=== PATIENT | male | born 1940 | race Caucasian/White ===

== ENCOUNTER 2019-10-23 10:31 | Emergency (ER) | payer MEDICARE, OTHER ==
--- NOTE | 2019-10-23 11:34 | XRAY Report ---
PROCEDURE: Knee 3 View LT INDICATIONS: pain/swelling TECHNIQUE: 3 views of the left knee were acquired. COMPARISON: None. FINDINGS: Bones: No fractures or dislocations. Visualized osseous structures appear osteopenic. Soft tissues: There is a small joint effusion. There is chondrocalcinosis demonstrated. IMPRESSION: 1. No fracture or dislocation. 2. Chondrocalcinosis demonstrated. 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 3. Small joint effusion. Reviewed by: Wade Whitaker MD on 10/23/2019 11:32 AM PDT Approved by: Wade Whitaker MD on 10/23/2019 11:32 AM PDT Station ID: [id number]
--- NOTE | 2019-10-23 13:48 | ED Physician Documentation ---
PD HPI LOWER EXT INJURY - Stated complaint Stated Complaint: LT KNEE SWELLING - Chief complaint Chief Complaint: Ext Problem - History obtained from History obtained from: Patient - History of Present Illness PD HPI LOW EXT INJURY LOCATION: Left, Knee Where injury occurred: Home Timing - onset: How many days ago (3) Timing - details: Gradual onset Improved by: Rest, Immobilization Worsened by: Moving, Palpating Associated symptoms: Swelling. No: Weakness, Numbness Contributing factors: No: Anticoagulated, Prior ortho surgery, Prosthetic joint Similar symptoms before: No diagnosis, Has not had sx before - Additional information Additional information: 79-year-old male presents to the emergency department with 3 days of left knee pain and swelling. He reports that he has been repairing his steps at his house and kneeling constantly. Over the last 3 days he has had pretty progressive swelling of the knee but no erythema. No fevers. He has had no falls or trauma. He has no skin sores or lesions. He denies any history of similar in the past. Patient is able to bear nearly full weight on the knee Review of Systems Constitutional: denies: Fever, Chills Cardiac: denies: Chest pain / pressure, Palpitations Respiratory: denies: Dyspnea, Cough GI: denies: Abdominal Pain, Abdominal Swelling : denies: Dysuria Skin: denies: Rash, Laceration (s) Musculoskeletal: reports: Joint pain, Joint swelling. denies: Neck pain, Back pain Neurologic: denies: Generalized weakness, Focal weakness, Syncope, Seizure PD PAST MEDICAL HISTORY - Past Medical History Musculoskeletal: Gout - Past Surgical History Past Surgical History: Yes - Present Medications Home Medications: Ambulatory Orders Medication Instructions Recorded Confirmed Aspirin [Aspir 81] 81 mg PO DAILY 08/04/12 03/20/14 Colchicine [Colcrys] 0.6 mg PO TID PRN 08/04/12 03/20/14 Cyanocobalamin (Vitamin B-12) 1,000 mcg IM Q30D 08/04/12 03/20/14 [Liquid B-12] Loperamide [Imodium] 3 mg PO DAILY PRN 08/04/12 03/20/14 Telmisartan [Micardis] 40 mg PO QAM 08/04/12 03/20/14 Lactobacillus Rhamnosus GG 1 each PO DAILY 02/28/13 03/20/14 [Probiotic] - Allergies Allergies/Adverse Reactions: Allergies Allergy/AdvReac Type Severity Reaction Status Date / Time YUVAL Inhibitors AdvReac Intermediate cough Verified 10/23/19 10:35 - Social History Does the pt smoke?: No Smoking Status: Never smoker Does the pt drink ETOH?: No Does the pt have substance abuse?: No - Immunizations Immunizations are current?: Yes PD ED PE NORMAL - General General: Alert and oriented X 3, No acute distress, Well developed/nourished - HEENT HEENT: No: PERRL, EOMI - Neck Neck: No: Supple, no meningeal sign, No adenopathy - Cardiac Cardiac: No: RRR, No murmur - Respiratory Respiratory: No: No respiratory distress - Derm Derm: Normal color, Warm and dry, No rash - Extremities Extremities: No deformity, No tenderness to palpate, Other (left knee swelling without erythema. palpable effusion just above and below the patella. distal DP pulse 2+. no micromotion tenderness) Results - Vitals Vitals: Vital Signs - 24 hr 10/23/19 10/23/19 10:35 13:39 Temperature 36.4 C L 36.5 C Heart Rate 71 73 Respiratory 16 18 Rate Blood Pressure 165/72 H 143/87 H O2 Saturation 98 100 Oxygen O2 Source Room air - Rads (name of study) left knee Radiology: Final report received (No fracture or dislocation. Chondrocalcinosis demonstrated. 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 Small joint effusion.) PD MEDICAL DECISION MAKING - ED course Complexity details: reviewed results, d/w patient ED course: 79-year-old male presents the emergency department with chief complaint of 3 days of left knee swelling and pain after he was fixing and replacing the stairs at his home. He reports kneeling constantly for a few days prior. X-ray does not show any acute fracture dislocation. A small effusion is present. His exam is most consistent with a prepatellar bursitis. I have given the patient an Yuval wrap which has markedly improved his discomfort. I will recommend icing the knee and taking a limited amount of NSAID. We will schedule the patient for follow-up to the orthopedics department. He has no erythema or fevers and no skin lesions. My suspicion for a infected bursa is very low. In addition his exam is not consistent with a septic joint. Emergent return precautions discussed Departure - Departure Disposition: 01 Home, Self Care Clinical Impression: Prepatellar bursitis of left knee Condition: Stable Instructions: ED Bursitis, ED Wrap Yuval Ch Follow-Up: [facility] [Provider Group] Comments: The x-ray of your knee does not show anything broken or dislocated. However your exam is most consistent with what is called prepatellar bursitis. This is an inflammation of the sac surrounding the knee. This is likely because you were kneeling on the knee to repair the steps. Please wear the Yuval wrap as shown when out of bed for the next 4 to 5 days. I would also recommend icing the knee for 10 minutes 3 times a day. You may also take an [id number] NSAID medication like ibuprofen for 3 to 4 days to help with inflammation. In the long-term this is likely to resolve on its own. However I would like you to follow-up with orthopedic doctors for longer-term evaluation. Return here if you have fevers, increased pain, or any concerns of infection.
[2019-10-23 14:05] VITALS: BP 158/80
== END 2019-10-23 14:12 | disposition home or self-care (01) ==
LOC: ED 10:31
DX: M70.862 Other soft tissue disorders related to use, overuse and pressure, left lower leg (principal); Y93.H3 Activity, building and construction; M11.262 Other chondrocalcinosis, left knee; Z79.82 Long term (current) use of aspirin; D64.9 Anemia, unspecified; K52.832 Lymphocytic colitis; M70.42 Prepatellar bursitis, left knee
CPT/HCPCS: 36415; 80053; 82607; 82728; 82746; 83540; 84466; 84550; 85025; 99283; 99284

== ENCOUNTER 2019-10-23 11:42 | Outpatient (CLI) | payer MEDICARE, OTHER ==
[2019-10-23 12:19] LABS: BASOPHILS # (AUTO) 0.1 10^3/uL (0.0-0.1); BASOPHILS % (AUTO) 0.6 %; EOSINOPHILS % (AUTO) 0.4 %; HGB - HEMOGLOBIN 9.8 g/dL (14.0-18.0); LYMPHOCYTES # (AUTO) 0.7 10^3/uL (1.5-3.5); LYMPHOCYTES % (AUTO) 7.9 %; MEAN CORPUSCULAR HEMOGLOBIN 29.4 pg (27.0-31.0); MEAN CORPUSCULAR VOLUME 91.9 fL (80.0-94.0); MEAN PLATELET VOLUME 10.7 fL (7.4-11.4); MONOCYTES # (AUTO) 0.8 10^3/uL (0.0-1.0); MONOCYTES % (AUTO) 10.1 %; NEUTROPHILS # (AUTO) 6.7 10^3/uL (1.5-6.6); NEUTROPHILS % (AUTO) 80.4 %; PLT - PLATELET COUNT 190 10^3/uL (130-450); RED BLOOD COUNT 3.33 10^6/uL (4.70-6.10); RED CELL DISTRIBUTION WIDTH 13.8 % (12.0-15.0); WHITE BLOOD COUNT 8.3 x10^3/uL (4.8-10.8)
[2019-10-23 12:52] LABS: BILIRUBIN,TOTAL 1.1 mg/dL (0.2-1.0); CALCIUM 9.1 mg/dL (8.5-10.3); CREATININE 1.4 mg/dL (0.6-1.2); TOTAL PROTEIN 7.9 g/dL (6.7-8.2); URIC ACID 7.2 mg/dL (2.6-7.2)
[2019-10-23 13:07] LABS: FERRITIN 223.1 ng/mL (23.9-336.2)
[2019-10-23 21:06] LABS: FOLATE 16.98 ng/mL (5.90 - >24.8)
== END 2019-10-23 11:43 | disposition home or self-care (01) ==
LOC: LAB 11:42
PROVIDERS: ATTEND Nurse Practitioner Family
DX: D64.9 Anemia, unspecified (principal); K52.832 Lymphocytic colitis; M70.42 Prepatellar bursitis, left knee
CPT/HCPCS: 36415; 80053; 82607; 82728; 82746; 83540; 84466; 84550; 85025

== ENCOUNTER 2020-07-08 10:23 | Outpatient (CLI) | payer MEDICARE, OTHER ==
--- NOTE | 2020-07-09 09:54 | Mammography Report ---
MALE BILATERAL DIGITAL DIAGNOSTIC MAMMOGRAM 3D/2D: 07/08/2020 CLINICAL: Focal right breast pain. No prior exams were available for comparison. There is irregular flame-shaped equal density asymmetry with indistinct margins in the right breast c entral to the nipple in the retroareolar region. This correlates as palpated. No other significant masses, calcifications, or other findings are seen in either breast. IMPRESSION: BENIGN There is no mammographic evidence of malignancy. Retroareolar flame-shaped asymmetric fibroglandular tissue is consistent with gynecomastia. Recommend correlation clinically to determine possible etiology and to demonstrate stability or resolution. This exam was interpreted at Station ID: [id number]. NOTE: For mammograms, a report in lay terms will be sent to the patient. Approximately 15% of breast malignancies will not be visualized mammographically. In the management of a palpable breast mass, a negative mammogram must not discourage biopsy of a clinically suspicious lesion. Electronically Signed By: Wade Whitaker M.D. ddp/:07/08/2020 11:45:03 ACR BI-RADS Category 2: Benign Finding(s) 3342F PARENCHYMAL PATTERN: (F) - The breast(s) demonstrate(s) diffuse fatty replacement. BI-RADS CATEGORY: (2) - 2 Unspecified - other recall n/a LATERALITY: (B)
== END 2020-07-08 10:24 | disposition home or self-care (01) ==
LOC: DI 10:23
PROVIDERS: ATTEND Family Medicine
DX: N63.15 Unspecified lump in the right breast, overlapping quadrants (principal); N62 Hypertrophy of breast

== ENCOUNTER 2020-08-07 09:28 | Outpatient (CLI) | payer MEDICARE, OTHER ==
--- NOTE | 2020-08-07 13:35 | XRAY Report ---
PROCEDURE: Lumbar Spine 2 View INDICATIONS: LBP TECHNIQUE: 2 views of the lumbar spine were acquired. COMPARISON: Lumbar spine radiographs 03/02/2013. FINDINGS: Bones: 5 [id number] vertebrae are present. There is mild dextroconvex curvature of the included thoracolumbar spine. No vertebral body compression fractures. No suspicious bony lesions. Multilev el disc space narrowing and degenerative endplate changes are seen that are worst at the L2-3 and L3- 4 levels. Facet hypertrophy is seen at the L4-5 and L5-S1 levels. Soft tissues: Overlying bowel gas pattern is normal. A calcification projecting over the right abdom en may represent a gallstone. IMPRESSION: No acute osseous abnormality. Multilevel spondylosis, progressed when compared to the ra diographs from 03/02/2013. MRI may be obtained for further evaluation if indicated clinically. Reviewed by: Jordan Briceno MD on 08/07/2020 1:33 PM PDT Approved by: Jordan Briceno MD on 08/07/2020 1:33 PM PDT Station ID: [id number]
== END 2020-08-07 09:29 | disposition home or self-care (01) ==
LOC: DI.S 09:28
PROVIDERS: ATTEND Internal Medicine
DX: M47.817 Spondylosis without myelopathy or radiculopathy, lumbosacral region (principal)

== ENCOUNTER 2020-08-11 10:34 | Emergency (ER) | payer MEDICARE, OTHER ==
[2020-08-11 10:44] VITALS: BP 143/100
--- NOTE | 2020-08-11 10:57 | ED Physician Documentation ---
PD HPI BACK PAIN - Stated complaint Stated Complaint: LOWER BACK PX - Chief complaint Chief Complaint: Back Pain - History obtained from History obtained from: Patient - History of Present Illness Timing - onset: How many weeks ago (1) Timing - duration: Weeks (1) Timing - details: Abrupt onset, Still present Location: Lower Quality: Pain, Spasm, Aching Associated symptoms: No: Fever, Weakness, Numbness, Incontinent of urine Improves with: Rest. No: Meds Worsened by: Movement Contributing factors: Trauma (he had fallen backward and had onset of the low back pain, worse with movement, has been hurting more the past few days despite PO meds.) Similar symptoms before: Has not had sx before Recently seen: Clinic (seen by PMD and had xrays that did not show acute injury. Still having considerable pain with ROM and sitting up.) Review of Systems Constitutional: denies: Fever, Chills Nose: denies: Rhinorrhea / runny nose, Congestion Throat: denies: Sore throat Respiratory: denies: Cough : denies: Incontinent Neurologic: denies: Focal weakness, Numbness PD PAST MEDICAL HISTORY - Past Medical History Cardiovascular: Hypertension Respiratory: None Neuro: None Endocrine/Autoimmune: None Musculoskeletal: Gout - Past Surgical History Past Surgical History: Yes - Present Medications Home Medications: Ambulatory Orders Medication Instructions Recorded Confirmed Aspirin [Aspir 81] 81 mg PO DAILY 08/04/12 03/20/14 Colchicine [Colcrys] 0.6 mg PO TID PRN 08/04/12 03/20/14 Cyanocobalamin (Vitamin B-12) 1,000 mcg IM Q30D 08/04/12 03/20/14 [Liquid B-12] Loperamide [Imodium] 3 mg PO DAILY PRN 08/04/12 03/20/14 Telmisartan [Micardis] 40 mg PO QAM 08/04/12 03/20/14 Lactobacillus Rhamnosus GG 1 each PO DAILY 02/28/13 03/20/14 [Probiotic] Calcitonin [Fortical] 1 sprays SANJIV DAILY #1 bottle 08/11/20 HYDROcod/ACETAM 5/325 [[place] 5/325] 1 ea PO Q6H PRN #25 tablet 08/11/20 dexAMETHasone [Decadron] 4 mg PO DAILY #5 tablet 08/11/20 tiZANidine [Zanaflex] 4 mg PO Q8H PRN #25 tablet 08/11/20 - Allergies Allergies/Adverse Reactions: Allergies Allergy/AdvReac Type Severity Reaction Status Date / Time MEÑO Inhibitors AdvReac Intermediate cough Verified 08/11/20 10:42 - Social History Does the pt smoke?: No Smoking Status: Never smoker Does the pt drink ETOH?: No Does the pt have substance abuse?: No - Immunizations Immunizations are current?: Yes PD ED PE NORMAL - Vitals Vital signs reviewed: Yes - General General: Alert and oriented X 3, Well developed/nourished, Other (appears uncomfortable with twisting and sitting up. ) - Cardiac Cardiac: RRR, No murmur - Respiratory Respiratory: Clear bilaterally, Other (no chestwall tenderness) - Abdomen Abdomen: Soft, Non tender - Back Back: No CVA TTP, Other (Tender mid lumbar area to palpation of muscles but also to percussion over spinous process. ) - Derm Derm: Normal color, Warm and dry - Neuro Neuro: Alert and oriented X 3, No motor deficit, No sensory deficit (tested in dermatomal pattern.), Normal speech Results - Vitals Vitals: Vital Signs - 24 hr 08/11/20 10:42 Temperature 36.3 C L Heart Rate 67 Respiratory 19 Rate Blood Pressure 143/100 H O2 Saturation 99 Oxygen O2 Source Room air - Rads (name of study) lumbar CT Radiology: Prelim report reviewed (L3 compression fracture without any retropulsion. ), See rad report PD MEDICAL DECISION MAKING - ED course Complexity details: reviewed results, considered differential, d/w patient Departure - Departure Disposition: 01 Home, Self Care Clinical Impression: Accidental fall Qualifiers: Encounter type: initial encounter Qualified Code(s): W19.XXXA - Unspecified fall, initial encounter Lumbar compression fracture Qualifiers: Encounter type: initial encounter Lumbar vertebra fracture level: L3 Qualified Code(s): S32.030A - Wedge compression fracture of third lumbar vertebra, initial encounter for closed fracture Condition: Stable Record reviewed to determine appropriate education?: Yes Instructions: ED Fx Comp Vertebral Follow-Up: Jermain Saez MD [Primary Care Provider] - Prescriptions: dexAMETHasone [Decadron] 4 mg PO DAILY #5 tablet Calcitonin [Fortical] 1 sprays SANJIV DAILY #1 bottle HYDROcod/ACETAM 5/325 [[place] 5/325] 1 ea PO Q6H PRN #25 tablet PRN Reason: Pain tiZANidine [Zanaflex] 4 mg PO Q8H PRN #25 tablet PRN Reason: Spasms Comments: Your CT scan shows a mild compression fracture of L3 that was not visible on the plain x-ray. This would be treated without intervention surgically and would really be a ma tter of time for it to heal over about 4 to 5 weeks. The worst of it is usually the first couple of weeks. Continue with some anti-inflammatories and I wrote a prescription to extend those another 5 days. Add tizanidine muscle relaxant for spasms. To that add Tylenol every 4-6 hours for pain or hydrocodone for worse pain. Studies suggest use of a calcitonin nasal spray daily for the next month will shorten the time that your back hurts as it hastens the healing of the bone. Follow-up with your primary care. Activity as tolerated. Discharge Date/Time: 08/11/20 12:43
[2020-08-11] MEDS ORDERED: KETOROLAC 30 MG/ML VIAL IM STA (11:15)
[2020-08-11] MEDS ORDERED: HYDROcod/ACETAM 5/325 MG TABLET PO STA (11:15)
--- NOTE | 2020-08-11 12:26 | CT Report ---
PROCEDURE: LUMBAR SPINE WO INDICATIONS: fall with lumbar pain x 1 week TECHNIQUE: Noncontrast 3 mm thick sections acquired from the T12 level to the sacrum. Sagittal and coronal refo rmats were constructed. For radiation dose reduction, the following was used: automated exposure co ntrol, adjustment of mA and/or kV according to patient size. COMPARISON: None. FINDINGS: Image quality: Excellent. Bones: There is normal bony alignment. There is a right-sided compression fracture or Schmorl's node involving the right aspect of the superior endplate of L3 without anterior height loss. No retropuls ed fracture fragment. Remainder the vertebral body heights and alignment is maintained. No suspicious lytic or blastic bony lesions. No pars defects. T12-L1: Normal in appearance. L1-L2: Normal in appearance. L2-L3: Moderate disc height loss with circumferential disc asymmetric to the left effaces both lat eral recesses and results in moderate central and moderate bilateral foraminal stenosis, left greater than right. L3-L4: Moderate disc height loss and circumferential disc bulge with moderate central stenosis narr owing the AP diameter of the thecal sac to 9 mm. Moderate bilateral foraminal stenosis present. L4-L5: Moderate disc height loss and asymmetric left circumferential disc bulge results in mild paola tral stenosis . There is effacement of both the lateral recesses. Mild left and moderate right centra l stenosis. L5-S1: Severe disc space narrowing with vacuum disc phenomena present. Circumferential disc bulge r esults in mild central stenosis with moderate to severe bilateral foraminal stenosis. Bridging osteophytes and ankylosis noted involving both sacroiliac joints. IMPRESSION: 1. L3 compression fracture results in central depression of the superior endplate without overall hei ght loss or retropulsed fracture fragment. 2. Multilevel degenerative disc disease results in varying degrees of central and foraminal stenosis as above, including moderate central and bilateral foraminal stenosis at L2-3 Reviewed by: Nixon Yañez MD on 08/11/2020 11:25 AM WENCESLAO Approved by: Nixon Yañez MD on 08/11/2020 11:25 AM [id number] Station ID: [id number]
== END 2020-08-11 12:43 | disposition home or self-care (01) ==
LOC: ED 10:34
DX: S32.030A Wedge compression fracture of third lumbar vertebra, initial encounter for closed fracture (principal); W19.XXXA Unspecified fall, initial encounter; I10 Essential (primary) hypertension
CPT/HCPCS: 72131; 96372; 99284; A9270

== ENCOUNTER 2021-09-02 12:17 | Outpatient (CLI) | payer MEDICARE, OTHER ==
[2021-09-02 14:25] LABS: ALBUMIN 3.7 g/dL (3.2-5.5); ALBUMIN/GLOBULIN RATIO 1.2 (1.0-2.2); BILIRUBIN,TOTAL 0.6 mg/dL (0.2-1.0); CALCIUM 9.1 mg/dL (8.5-10.3); CREATININE 1.2 mg/dL (0.6-1.2); POTASSIUM 3.8 mmol/L (3.5-5.0); TOTAL PROTEIN 6.9 g/dL (6.7-8.2)
== END 2021-09-02 12:18 | disposition home or self-care (01) ==
LOC: LAB.S 12:17
PROVIDERS: ATTEND Physician Assistant
DX: I10 Essential (primary) hypertension (principal)
CPT/HCPCS: 36415; 80053